=== PATIENT | male | born 1985 | race Caucasian/White ===

== ENCOUNTER 2022-05-31 18:40 | Emergency (ER) | payer OTHER ==
[~2022-05-31] VITALS: Ht 172.7 cm; Wt 76.3 kg
[2022-05-31] MEDS ORDERED: CYCL-707 PO (20:24)
[2022-05-31 20:41] VITALS: BP 126/69
== END 2022-05-31 20:50 | disposition home or self-care (01) ==
LOC: M ED 18:40
DX: S16.1XXA Strain of muscle, fascia and tendon at neck level, initial encounter (principal); V49.40XA Driver injured in collision with unspecified motor vehicles in traffic accident, initial encounter; Y92.410 Unspecified street and highway as the place of occurrence of the external cause